=== PATIENT | female | born 1960 | race Caucasian/White ===

== ENCOUNTER 2019-02-15 19:49 | Emergency (ER) | payer BC ==
--- NOTE | 2019-02-15 20:08 | ERPHSYRPT ---
- History of Present Illness Time Seen by Provider: 02/15/19 20:00 Source: patient Exam Limitations: no limitations Physician History: 58 y/o right handed white female presents with laceration to palm of left hand. occurred [employer] prevention [employer]. was attempting to open pumpkin can. pts tetanus utd. Timing/Duration: today Quality: painful Severity: mild Location: hands (left hand) Possible Causes: other (accidental lac from can of pumpkin) Associated Symptoms: denies symptoms Allergies/Adverse Reactions: Penicillins Allergy (Verified 02/15/19 20:09) Sulfa (Sulfonamide Antibiotics) Allergy (Verified 02/15/19 20:09) - Review of Systems Constitutional: No Symptoms Eyes: No Symptoms Ears, Nose, & Throat: No Symptoms Respiratory: No Symptoms Cardiac: No Symptoms Abdominal/Gastrointestinal: No Symptoms Genitourinary Symptoms: No Symptoms Musculoskeletal: No Symptoms Skin: No Symptoms Neurological: No Symptoms Psychological: No Symptoms Endocrine: No Symptoms Hematologic/Lymphatic: No Symptoms Immunological/Allergic: No Symptoms All Other Systems: Reviewed and Negative - Past Medical History Pertinent Past Medical History: No Neurological History: No Pertinent History ENT History: No Pertinent History Cardiac History: No Pertinent History Respiratory History: No Pertinent History Endocrine Medical History: No Pertinent History Musculoskeletal History: No Pertinent History GI Medical History: No Pertinent History History: No Pertinent History Psycho-Social History: No Pertinent History Female Reproductive Disorders: No Pertinent History - Past Surgical History Neuro Surgical History: No Pertinent History Cardiac: No Pertinent History Respiratory: No Pertinent History Gastrointestinal: No Pertinent History Genitourinary: No Pertinent History Musculoskeletal: No Pertinent History Female Surgical History: No Pertinent History - Nursing Vital Signs Nursing Vital Signs: Initial Vital Signs Temperature 98.0 F 02/15/19 19:56 Pulse Rate 64 02/15/19 19:56 Respiratory Rate 18 02/15/19 19:56 Blood Pressure 130/85 02/15/19 19:56 O2 Sat by Pulse Oximetry 96 02/15/19 19:56 Pain Scale Pain Intensity 2 - Physical Exam General Appearance: no apparent distress, alert Eye Exam: PERRL/EOMI, eyes nml inspection Ears, Nose, Throat Exam: normal ENT inspection, moist mucous membranes Neck Exam: normal inspection, non-tender, supple, full range of motion Respiratory Exam: normal breath sounds, lungs clear, airway intact, No chest tenderness, No respiratory distress Cardiovascular Exam: regular rate/rhythm, normal heart sounds, normal peripheral pulses Gastrointestinal/Abdomen Exam: soft, normal bowel sounds, No tenderness Pelvic Exam: not done, uterine tenderness Rectal Exam: not done Back Exam: normal inspection, normal range of motion, No CVA tenderness, No vertebral tenderness Extremity Exam: normal inspection, normal range of motion, pelvis stable Neurologic Exam: alert, oriented x 3, cooperative, production recorder II-XII nml as tested Skin Exam: laceration (3cm palmar aspect with skin edge oozing. no fb. nv intact , tendon function intact) Lymphatic Exam: No adenopathy SpO2 Interpretation: normal O2 Delivery: Room Air Procedures - Laceration/Wound Repair Left Volar Hand Wound Location: Left, hand Wound Length (cm): 3 Wound's Depth, Shape: superficial, linear Wound Explored: heavily contaminated Irrigated: Yes Hibiclens Prep: Yes Anesthesia: 1% Lidocaine Volume Anesthetic (ccs): 4 Wound Repaired With: sutures Suture Size/Type: 4-0, nylon Number of Sutures: 4 Layer Closure?: No Sterile Dressing Applied?: Yes Splint Applied?: No Progress: 02/15/19 21:44 asia well. no complications - Course Nursing assessment & vital signs reviewed: Yes Ordered Tests: Active Orders 24 hr Category Date Time Status Wound Care STAT Care 02/15/19 20:08 Active Medication Summary Discontinued Medications Generic Name Dose Route Start Last Admin Trade Name Silke PRN Reason Stop Dose Admin Bacitracin Zinc 0.9 gm 02/15/19 21:09 02/15/19 21:10 Baciguent Packet TP 02/15/19 21:10 0.9 gm STAT ONE Administration Bacitracin Zinc Confirm 02/15/19 21:09 Baciguent Packet Administered 02/15/19 21:10 Dose 1 gm .ROUTE .STK-MED ONE Lidocaine HCl 5 ml 02/15/19 20:09 02/15/19 20:18 Xylocaine 1% Hcl 20 Ml Mdv IJ 02/15/19 20:10 5 ml STAT ONE Administration Lidocaine HCl Confirm 02/15/19 20:16 Xylocaine 1% Hcl 20 Ml Mdv Administered 02/15/19 20:17 Dose 5 ml .ROUTE .STK-MED ONE - Progress Progress: improved Counseled pt/family regarding: diagnosis, need for follow-up - Departure Departure Disposition: Home Clinical Impression: Laceration of left hand Condition: Stable Critical Care Time: No Referrals: AKILA GARZA NP [Primary Care Provider] - Instructions: Laceration Repair With Stitches (DC) Additional Instructions: keep dry for 24 hour. after 24 hour may wash daily. apply antibiotic ointment to wound site daily and cover with bandage. suture removal in 8 to 10 days. tylenol and ibuprofen for pain
[2019-02-15 20:09] VITALS: PULSE 64
[2019-02-15] MEDS ORDERED: XYLOCAINE 1% HCL 20 ML MDV ONE (20:16)
[2019-02-15] MEDS: XYLOCAINE 1% HCL 20 ML MDV IJ ONE (20:18)
[2019-02-15] MEDS ORDERED: BACIGUENT PACKET ONE (21:09)
[2019-02-15] MEDS: BACIGUENT PACKET TP ONE (21:10)
[2019-02-15 21:45] VITALS: BP 138/91; O2SAT 97
== END 2019-02-15 21:49 | disposition home or self-care (01) ==
LOC: ED 19:49
DX: S61.412A Laceration without foreign body of left hand, initial encounter (principal); W26.8XXA Contact with other sharp object(s), not elsewhere classified, initial encounter; Y93.89 Activity, other specified
CPT/HCPCS: 12002; 96372; 99283; A9270-GY

== ENCOUNTER 2020-04-27 14:55 | Emergency (ER) | payer BC ==
--- NOTE | 2020-04-27 14:57 | ERPHSYRPT ---
- History of Present Illness Time Seen by Provider: 04/27/20 14:57 Source: patient Exam Limitations: no limitations Physician History: This is a 59-year-old white female who tripped in her yard approximately half hour prior to arrival. She did scrape her head. She has no headache. She has no neck pain. She did not lose consciousness. She is not on any blood thinning medication. She did fall onto her outstretched right hand and came in because of right wrist pain. The patient is right-handed. Occurred: just prior to arrival Method of Injury: fell Quality: constant, aching Severity of Pain-Max: moderate Severity of Pain-Current: moderate Extremities Pain Location: wrist: right Modifying Factors: Improves With: movement Associated Symptoms: none Allergies/Adverse Reactions: Penicillins Allergy (Verified 04/27/20 15:08) Sulfa (Sulfonamide Antibiotics) Allergy (Verified 04/27/20 15:08) Home Medications: Alendronate Sodium 70 mg [Fosamax 70 MG] 70 mg PO Q7D@0600 04/27/20 [History] Escitalopram Oxalate 10 mg [Lexapro 10 MG] 10 mg PO DAILY 04/27/20 [History] Levothyroxine Sodium 75 Mcg [Synthroid 75 Mcg] 75 mcg PO DAILY 04/27/20 [History] Metformin HCl Xr 500 mg [Glucophage XR 500 MG] 500 mg PO DAILY 04/27/20 [History] Simvastatin 20Mg [Zocor 20Mg] 20 mg PO DAILY 04/27/20 [History] atenoloL [Atenolol] 25 mg PO DAILY 04/27/20 [History] Hx Tetanus, Diphtheria Vaccination/Date Given: Yes (2016) Hx Influenza Vaccination/Date Given: No Hx Pneumococcal Vaccination/Date Given: No Travel Risk - International Travel Have you traveled outside of the country in past 3 weeks: No - Coronavirus Screening Are you exhibiting any of the following symptoms?: No Close contact with a COVID-19 positive Pt in past 14-21 Days: No - Review of Systems Constitutional: No Symptoms Eyes: No Symptoms Ears, Nose, & Throat: No Symptoms Respiratory: No Symptoms Cardiac: No Symptoms Abdominal/Gastrointestinal: No Symptoms Genitourinary Symptoms: No Symptoms Musculoskeletal: Fall, Injury (Right wrist) Skin: No Symptoms Neurological: No Symptoms Psychological: No Symptoms Endocrine: No Symptoms Hematologic/Lymphatic: No Symptoms Immunological/Allergic: No Symptoms All Other Systems: Reviewed and Negative - Past Medical History Pertinent Past Medical History: No Neurological History: No Pertinent History ENT History: No Pertinent History Cardiac History: No Pertinent History Respiratory History: No Pertinent History Endocrine Medical History: No Pertinent History Musculoskeletal History: No Pertinent History GI Medical History: No Pertinent History History: No Pertinent History Psycho-Social History: No Pertinent History Female Reproductive Disorders: No Pertinent History - Past Surgical History Past Surgical History: Yes Neuro Surgical History: No Pertinent History Cardiac: No Pertinent History Respiratory: No Pertinent History Gastrointestinal: No Pertinent History Genitourinary: No Pertinent History Musculoskeletal: No Pertinent History Female Surgical History: No Pertinent History - Social History Smoking Status: Former smoker Exposure to second hand smoke: No Drug Use: none Patient Lives Alone: Yes - Nursing Vital Signs Nursing Vital Signs: Initial Vital Signs Temperature 98.0 F 04/27/20 14:56 Pulse Rate 54 L 04/27/20 14:56 Blood Pressure 128/60 04/27/20 14:56 O2 Sat by Pulse Oximetry 100 04/27/20 14:56 Pain Scale Pain Intensity 4 - Physical Exam General Appearance: no apparent distress, alert, anxiety Eyes, Ears, Nose, Throat Exam: normal ENT inspection, moist mucous membranes Neck Exam: normal inspection, non-tender, supple, full range of motion Cardiovascular/Respiratory Exam: chest non-tender, normal breath sounds, no respiratory distress Abdominal Exam: non-tender Back Exam: normal inspection, normal range of motion, No CVA tenderness, No vertebral tenderness Shoulder Exam: normal inspection, non-tender, no evidence of injury, normal ROM Elbow/Forearm Exam: normal inspection, non-tender, no evidence of injury, normal ROM Wrist Exam: bone tenderness, deformity, ecchymosis, limited ROM, soft tissue tenderness, swelling Hand Exam: normal inspection, non-tender, no evidence of injury, normal ROM Neuro/Tendon Exam: normal sensation, normal motor functions, normal tendon functions Mental Status Exam: alert, oriented x 3, cooperative Skin Exam: normal color, warm, dry SpO2 Interpretation: normal O2 Delivery: Room Air - Course Nursing assessment & vital signs reviewed: Yes Ordered Tests: Active Orders 24 hr Category Date Time Status Cold Application STAT Care 04/27/20 15:01 Active WRIST (MIN 3 VIEWS) Stat Exams 04/27/20 15:14 Taken - Progress Progress: improved, pain not gone completely Progress Note: 04/27/20 15:44 X-ray right wrist nondisplaced fracture distal radius. Post Velcro splint placement reveals normal neurovascular exam. Counseled pt/family regarding: diagnosis, need for follow-up, rad results - Departure Departure Disposition: Home Clinical Impression: Fracture of right distal radius Condition: Stable Critical Care Time: No Referrals: AKILA GARZA NP [Primary Care Provider] - [facility]-Ortho M-F [id number] Additional Instructions: Ice pack to area 2-3 times a day. Follow-up tomorrow morning at 8:00 at the [facility] orthopedic clinic for further management. Add ibuprofen 600 mg orally with food 3 times a day. Wear wrist splint Forms: Work/School Release Form Prescriptions: Hydrocodone/APAP 5/325 [[place] 5/325 mg] 1 each PO Q8H PRN PRN #9 tablet MDD 3 PRN Reason: Pain
[2020-04-27] MEDS ORDERED: NORCO 5/325 MG PO ONE (15:51)
[2020-04-27] MEDS ORDERED: MOTRIN 600 MG PO ONE (15:51)
[2020-04-27] MEDS ORDERED: MOTRIN 600 MG ONE (15:53)
[2020-04-27] MEDS ORDERED: NORCO 5/325 MG ONE (15:53)
[2020-04-27 15:59] VITALS: BP 117/63; PULSE 64; O2SAT 98
--- NOTE | 2020-04-27 16:26 | XRAY ---
Indication: Pain following fall. Comparison: None 3 view right wrist demonstrates nondisplaced comminuted fracture distal radius with intra-articular extension, nondisplaced ulnar styloid tip fracture, and soft tissue swelling. Incidental mild 1st metacarpal multangular degenerative changes. No other bony, articular, or soft tissue abnormalities.
== END 2020-04-27 16:06 | disposition home or self-care (01) ==
LOC: ED 14:55
DX: M25.531 Pain in right wrist (principal); S52.501A Unspecified fracture of the lower end of right radius, initial encounter for closed fracture; W01.0XXA Fall on same level from slipping, tripping and stumbling without subsequent striking against object, initial encounter; Z79.899 Other long term (current) drug therapy
CPT/HCPCS: 73110; 99284; L3908; A9270-GY